=== PATIENT | female | born 2000 | race Caucasian/White ===

== ENCOUNTER 2021-10-12 21:52 | Emergency (ER) | payer BC, OTHER ==
[2021-10-13 01:16] LABS: BASO % 0.9 % (0.0-1.0); HEMATOCRIT 37.7 % (37.0-47.0); LYMPH # 0.4 10*3/uL (1.3-4.4); MEAN CELL VOLUME 84.5 fl (81.0-99.0); MEAN CORPUSCULAR HGB CONC 33.2 g/dl (33.0-37.0); MEAN PLATELET VOLUME 9.6 fl (9.6-12.3); MONO # 0.3 10*3/uL (0.1-1.0); MONO % 7.9 % (3.0-9.0); NEUT # 2.7 10*3/uL (2.3-7.9); NEUT % 78.3 % (47.0-73.0); PLATELET COUNT AUTOMATED 193 10*3/uL (130-400); RED BLOOD COUNT 4.46 10*6/uL (4.10-5.10); RED CELL DISTRI WIDTH 13.2 % (0-14.5); WHITE BLOOD COUNT 3.4 10*3/uL (4.8-10.8)
[2021-10-13 01:32] LABS: ALKALINE PHOSPHATASE 69 U/L (45-117); BUN 11 mg/dl (7-24); CHLORIDE 106 mmol/L (98-107); CREATININE 0.88 mg/dL (0.55-1.02); POTASSIUM 4.2 mmol/L (3.5-5.1); SGOT/AST 28 IU/L (3-35); SGPT/ALT 35 U/L (12-78); SODIUM 138 mmol/L (136-145); TOTAL PROTEIN 7.5 gm/dL (6.4-8.2)
== END 2021-10-13 04:00 | disposition home or self-care (01) ==
LOC: ED 21:52
PROVIDERS: Emergency Medicine
DX: B34.9 Viral infection, unspecified (principal); Z20.822 Contact with and (suspected) exposure to COVID-19; R11.10 Vomiting, unspecified; R00.0 Tachycardia, unspecified

== ENCOUNTER 2022-07-10 04:12 | Emergency (ER) | payer BC, OTHER ==
[~2022-07-10] VITALS: Ht 162.5 cm; Wt 90.7 kg
[2022-07-10] MEDS ORDERED: ORTHO TRI-CYCL1 EACH PO (04:31)
== END 2022-07-10 05:32 | disposition home or self-care (01) ==
LOC: ED 04:12
DX: J10.1 Influenza due to other identified influenza virus with other respiratory manifestations (principal); Z91.041 Radiographic dye allergy status; Z20.822 Contact with and (suspected) exposure to COVID-19

== ENCOUNTER 2023-07-09 20:59 | Emergency (ER) | payer BC, OTHER ==
[~2023-07-09] VITALS: Ht 157.4 cm; Wt 86.2 kg
[~2023-07-09 20:59] MED LIST: ORTHO TRI-CYCL1 EACH PO
[2023-07-09] MEDS ORDERED: Acetaminophen/Hydrocodone 5 MG/325 MG TABLET PO ONE (21:15)
[2023-07-09] MEDS ORDERED: Motrin,Rufen800 MG PO (23:37)
== END 2023-07-10 00:30 | disposition home or self-care (01) ==
LOC: ED 20:59
DX: S93.402A Sprain of unspecified ligament of left ankle, initial encounter (principal); X50.1XXA Overexertion from prolonged static or awkward postures, initial encounter; Y93.89 Activity, other specified; Y92.89 Other specified places as the place of occurrence of the external cause; Y99.8 Other external cause status

== ENCOUNTER 2024-01-14 09:46 | Emergency (ER) | payer BC, OTHER ==
[~2024-01-14] VITALS: Ht 162.5 cm; Wt 85.1 kg
[~2024-01-14 09:46] MED LIST changes: +Motrin,Rufen800 MG PO
[2024-01-14] MEDS ORDERED: ZEPBOUND5 MG/0.5 M SQ (09:53)
[2024-01-14] MEDS ORDERED: Ondansetron Hydrochloride 4 MG/2 ML VIAL IV ONE (10:05)
[2024-01-14] MEDS ORDERED: SODIUM CHLORIDE 0.9% 1,000 ML IV ONE (10:05)
[2024-01-14 10:29] LABS: BASO # 0.1 10*3/uL (0.0-0.1); BASO % 0.3 % (0.0-1.0); BILIRUBIN Negative (Negative); BLOOD 2+ (Negative); CLARITY Cloudy (Clear); COLOR Dark Yellow (Yellow); EOS # 0.2 10*3/uL (0.0-0.4); EOS % 1.4 % (1.0-4.0); GLUCOSE Negative (Negative); HEMATOCRIT 42.2 % (37.0-47.0); KETONE 4+ (Negative); LEUKO ESTERASE 1+ (Negative); LYMPH # 2.7 10*3/uL (1.3-4.4); LYMPH % 18.4 % (27.0-41.0); MEAN CELL VOLUME 85.9 fl (81.0-99.0); MEAN CORPUSCULAR HGB 28.3 pg (27.0-31.0); MEAN CORPUSCULAR HGB CONC 32.9 g/dl (33.0-37.0); MONO # 0.8 10*3/uL (0.1-1.0); MONO % 5.2 % (3.0-9.0); NEUT # 10.9 10*3/uL (2.3-7.9); NEUT % 74.4 % (47.0-73.0); NITRITE Negative (Negative); PH 5.5 (4.5-8.0); PLATELET COUNT AUTOMATED 334 10*3/uL (130-400); RED BLOOD COUNT 4.91 10*6/uL (4.10-5.10); SPECIFIC GRAVITY >= 1.030 (1.001-1.030); WHITE BLOOD COUNT 14.7 10*3/uL (4.8-10.8)
[2024-01-14 10:41] LABS: EPITHELIAL CELLS 31-40
[2024-01-14 10:42] LABS: WBC 16-20 wbc/hpf (0-5)
[2024-01-14 10:46] LABS: BACTERIA 3+
[2024-01-14 10:51] LABS: ALKALINE PHOSPHATASE 71 U/L (46-116); BUN 9 mg/dl (9-23); CHLORIDE 102 mmol/L (98-107); POTASSIUM 3.5 mmol/L (3.4-5.1); SGPT/ALT 32 U/L (5-49); TOTAL PROTEIN 8.2 gm/dL (6.0-8.0)
[2024-01-14] MEDS ORDERED: Ceftriaxone Sodium 1 GM/10 ML SYR IV ONE (11:00)
[2024-01-14] MEDS ORDERED: CALCIUM (TUMS) 500MG PO ONE (12:10)
[2024-01-14] MEDS ORDERED: Ondansetron4 MG SL (12:16)
[2024-01-14] MEDS ORDERED: SEPTDS PO (12:16)
== END 2024-01-14 12:22 | disposition home or self-care (01) ==
LOC: ED 09:46
PROVIDERS: Internal Medicine
DX: R11.2 Nausea with vomiting, unspecified (principal); Z20.822 Contact with and (suspected) exposure to COVID-19; N39.0 Urinary tract infection, site not specified